=== PATIENT | female | born 1955 | race Caucasian/White ===

== ENCOUNTER 2017-03-14 13:21 | Emergency (ER) | payer OTHER ==
[~2017-03-14] VITALS: Ht 167.6 cm; Wt 71.0 kg
[2017-03-14 13:28] VITALS: Ht 167.6 cm; Wt 71.0 kg
[2017-03-14] MEDS ORDERED: ACETAMINOPHEN 500 MG TAB PO STA (14:51)
--- NOTE | 2017-03-14 18:00 | RADRPT ---
PROCEDURE: XR Chest. CLINICAL INDICATION: Chest pain. TECHNIQUE: Single frontal view. COMPARISON: None. FINDINGS: The lungs are clear. The heart is enlarged. There is no pleural effusion. There is no pneumothorax. IMPRESSION: 1. Cardiomegaly. 2. Clear lungs. RPTAT: QQ .Zbigniew Bond MD, MD Date Time Electronically viewed and signed by .Zbigniew Bond MD, MD on 03/14/2017 18:00 .R/
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
[2017-03-14] MEDS ORDERED: TRAM50TA2 PO (18:12)
[2017-03-14] MEDS ORDERED: IBUP-1542 PO (18:12)
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
== END 2017-03-14 18:30 | disposition home or self-care (01) ==
LOC: FTE 13:21
DX: S13.9XXA Sprain of joints and ligaments of unspecified parts of neck, initial encounter (principal); R07.9 Chest pain, unspecified; V49.50XA Passenger injured in collision with unspecified motor vehicles in traffic accident, initial encounter
CPT/HCPCS: 71010; 72040; 72100